=== PATIENT | male | born 1960 ===

== ENCOUNTER 2020-12-25 10:30 | Emergency (ER) | payer OTHER ==
[~2020-12-25] VITALS: Ht 167.6 cm; Wt 77.1 kg
[2020-12-25] MEDS ORDERED: CARDURA1 MG PO (10:55)
[2020-12-25] MEDS ORDERED: NEURONTIN800 MG PO (10:55)
[2020-12-25] MEDS ORDERED: ZESTRIL2.5 MG PO (10:55)
[2020-12-25] MEDS ORDERED: FORTAMET500 MG PO (10:56)
[2020-12-25] MEDS ORDERED: BACLOFEN20 MG PO (10:56)
[2020-12-25] MEDS ORDERED: PRILOSEC OTC20 MG (10:56)
[2020-12-25] MEDS ORDERED: CARAFATE1 GM PO (10:56)
[2020-12-25] MEDS ORDERED: PEPCID20 MG PO (10:56)
[2020-12-25] MEDS ORDERED: DEPAKOTE ER500 MG PO (10:57)
[2020-12-25] MEDS ORDERED: TEGRETOL XR400 MG PO (10:57)
[2020-12-25] MEDS ORDERED: LIPITOR20 MG (10:57)
[2020-12-25] MEDS ORDERED: ECOTRIN81 MG PO (10:57)
[2020-12-25] MEDS ORDERED: XANAX2 MG PO (10:57)
[2020-12-25] MEDS ORDERED: PHENOBARBI20 MG/5 M1 (10:58)
== END 2020-12-25 18:07 | disposition home or self-care (01) ==
LOC: ER 10:30
DX: K57.30 Diverticulosis of large intestine without perforation or abscess without bleeding (principal); R10.11 Right upper quadrant pain